=== PATIENT | male | born 1965 | race Caucasian/White ===

== ENCOUNTER 2016-06-25 08:31 | Emergency (ER) | payer OTHER ==
[2016-06-25 09:12] LABS: BILIRUBIN NEGATIVE (NEGATIVE); BLOOD NEGATIVE Ery/uL (NEGATIVE); CLARITY HAZY (CLEAR); COLOR YELLOW (YELLOW); GLUCOSE (U) NORMAL (NORMAL); KETONE (U) NEGATIVE (NEGATIVE); LEUKOCYTES NEGATIVE Leu/uL (NEGATIVE); NITRITE NEGATIVE (NEGATIVE); PROTEIN TRACE (LOW) mg/dL (NEGATIVE); SPECIFIC GRAVITY 1.015 (1.001-1.030); UROBILINOGEN 0.2 mg/dL (0.2-1.0); pH 8.5 (5.0-9.0)
[2016-06-25 09:30] LABS: URINARY RBC RARE
[2016-06-25 09:31] LABS: BACTERIA TRACE; SQUAMOUS EPITHELIAL CELLS RARE
[2016-06-25 09:34] LABS: AMORPHOUS URATES CRYSTALS TRACE
[2016-06-25 10:03] LABS: ALBUMIN 4.7 g/dL (3.5-5.0); BILIRUBIN - TOTAL 0.7 mg/dL (0.1-1.0); CREATININE 0.6 mg/dL (0.7-1.2); GLOBULIN (CALCULATION) 2.4 g/dL (2.2-4.2); POTASSIUM 4.4 mmol/L (3.5-5.1); TOTAL PROTEIN 7.1 g/dL (6.4-8.3)
[2016-06-25 10:23] LABS: BASOPHIL 0.2 % (0-2); EOSINOPHIL 0.5 % (0-5); HCT 45.2 % (42.0-52.0); HGB 15.1 g/dl (13.2-18.0); LYMPHOCYTE 16.5 % (15-48); MCH 34.6 pg (25.0-31.0); MCHC 33.4 g/dL (32.0-36.0); MCV 103.7 fL (78.0-100.0); MONOCYTE 7.6 % (0-12); MPV 10.2 fL (6.0-9.5); NEUTROPHIL 75.2 % (41-80); PLT 454 K/Ul (150-400); RBC 4.36 M/uL (4.70-6.00); RDW 13.7 % (11.5-14.0); WBC 16.6 K/uL (4.0-10.5)
== END 2016-06-25 12:20 | disposition home or self-care (01) ==
LOC: FER 08:31
PROVIDERS: Emergency Medicine
DX: R10.9 Unspecified abdominal pain (principal); R11.2 Nausea with vomiting, unspecified; D72.829 Elevated white blood cell count, unspecified; F17.210 Nicotine dependence, cigarettes, uncomplicated
CPT/HCPCS: 36415; 80053; 81001; 83690; 85025; J2405

== ENCOUNTER → 2016-10-09 | Day surgery (SDC) | payer OTHER ==
[~2016-10-09] VITALS: Ht 167.6 cm; Wt 93.0 kg
[2016-10-09 06:23] LABS: HCT 43.8 % (42.0-52.0); HGB 15.4 g/dl (13.2-18.0); MCH 34.8 pg (25.0-31.0); MCHC 35.2 g/dL (32.0-36.0); MCV 99.1 fL (78.0-100.0); RBC 4.42 M/uL (4.70-6.00); RDW 13.5 % (11.5-14.0); WBC 15.7 K/uL (4.0-10.5)
== END | disposition home or self-care (01) ==
LOC: FAS 05:53
PROVIDERS: Anesthesiology
DX: M23.222 Derangement of posterior horn of medial meniscus due to old tear or injury, left knee (principal); M25.862 Other specified joint disorders, left knee; M67.52 Plica syndrome, left knee; M17.12 Unilateral primary osteoarthritis, left knee; M23.42 Loose body in knee, left knee; M79.4 Hypertrophy of (infrapatellar) fat pad; J45.909 Unspecified asthma, uncomplicated; Z90.81 Acquired absence of spleen
CPT/HCPCS: 36415; J2704; J3010

== ENCOUNTER 2021-04-16 10:22 | Emergency (ER) | payer OTHER ==
[~2021-04-16 10:22] MED LIST: ALL DAY ALLERGY10 M2 PO; AZITHROMYCIN250 MG PO; CYCLOBENZAPRINE10 MG PO; DUONEB 2.5-0.5M1 AMP INH; FLONASE SENSIM5.9 ML; IBUPROFEN800 MG PO; KEFLEX250 MG PO; MEDROL 4MG DOSEP4 MG PO; MUCINEX D TABL1 EACH PO; NEURONTIN300 MG PO; NORCO 5-325 TA1 EACH PO; PHENERGAN6.25 MG/5 PO; PREDNISONE 20MG20 MG PO; PREDNISONE5 MG PO; STAHIST AD TAB1 EACH PO; TRELEGY ELLIPT1 EACH PO; VENTOLIN HFA IN18 GM INH
[2021-04-16 11:43] LABS: BASOPHIL 0.6 % (0-2); EOSINOPHIL 0.9 % (0-5); HCT 45.2 % (42.0-52.0); HGB 15.4 g/dl (13.2-18.0); LYMPHOCYTE 25.1 % (15-48); MCH 34.6 pg (25.0-31.0); MCHC 34.1 g/dL (32.0-36.0); MCV 101.6 fL (78.0-100.0); MONOCYTE 13.9 % (0-12); MPV 9.4 fL (6.0-9.5); NEUTROPHIL 59.2 % (41-80); NRBC 0; PLT 314 K/uL (150-400); RBC 4.45 M/uL (4.70-6.00); RDW 12.7 % (11.5-14.0); WBC 9.1 K/uL (4.0-10.5)
[2021-04-16 11:59] LABS: CREATININE 0.88 mg/dL (0.67-1.17); POTASSIUM 3.8 mmol/L (3.5-5.1)
[2021-04-16 12:11] LABS: CORONAVIRUS 2019 SARS-COV-2 NEGATIVE (NEGATIVE); INFLUENZA A NAA NEGATIVE (NEGATIVE)
[2021-04-16] MEDS ORDERED: PREDNISONE 20MG20 MG PO (12:39)
[2021-04-16] MEDS ORDERED: AUGMENTIN 875-1 EACH PO (12:39)
[2021-04-16] MEDS ORDERED: VIBRAMYCIN100 MG PO (12:39)
== END 2021-04-16 13:31 | disposition home or self-care (01) ==
LOC: FER 10:22
PROVIDERS: Internal Medicine
DX: J44.0 Chronic obstructive pulmonary disease with (acute) lower respiratory infection (principal); J20.9 Acute bronchitis, unspecified; I10 Essential (primary) hypertension; E11.9 Type 2 diabetes mellitus without complications; Z20.822 Contact with and (suspected) exposure to COVID-19; Z87.891 Personal history of nicotine dependence
CPT/HCPCS: 36415; 71045; 80048; 84145; 85025; 94640; J2930; U0002

== ENCOUNTER 2021-09-16 10:14 | Emergency (ER) | payer OTHER ==
[~2021-09-16 10:14] MED LIST changes: +AUGMENTIN 875-1 EACH PO; +VIBRAMYCIN100 MG PO
[2021-09-16 11:28] LABS: INFLUENZA A NAA NEGATIVE (NEGATIVE)
[2021-09-16 11:30] LABS: CORONAVIRUS 2019 SARS-COV-2 POSITIVE (NEGATIVE)
[2021-09-16] MEDS ORDERED: ZPAK PO (12:26)
[2021-09-16] MEDS ORDERED: AMOX TR-K CLV1 EAC4 PO (12:37)
== END 2021-09-16 12:43 | disposition home or self-care (01) ==
LOC: FER 10:14
PROVIDERS: Emergency Medicine
DX: U07.1 COVID-19 (principal); J12.82 Pneumonia due to coronavirus disease 2019; I10 Essential (primary) hypertension; E11.9 Type 2 diabetes mellitus without complications; J44.9 Chronic obstructive pulmonary disease, unspecified; F17.200 Nicotine dependence, unspecified, uncomplicated; Z79.84 Long term (current) use of oral hypoglycemic drugs; Z79.02 Long term (current) use of antithrombotics/antiplatelets; Z79.899 Other long term (current) drug therapy
CPT/HCPCS: 36415; 71045; 84484; 93005; J2930; U0002